=== PATIENT | female | born 1950 | race Caucasian/White ===

== ENCOUNTER 2017-12-12 10:55 | Emergency (ER) | payer BC ==
[~2017-12-12] VITALS: Ht 162.6 cm; Wt 84.8 kg
[~2017-12-12 10:55] MED LIST: AMLODIPINE BES2.5 MG PO; APLISOL5 TUB UNIT ID; C COMPLEX1000 MG PO; CYMBALTA60 MG PO; DESYREL100 MG PO; DULCOLAX10 MG PR; FLEET ENEMA-AD118 ML PR; LEVOTHYROXINE125 MCG PO; LITE COAT ASPI325 M1 PO; LORAZEPAM0.5 MG PO; METOPROLOL SUC100 MG PO; MILK OF MAGN PO; OXYCODONE HCL10 MG PO; OXYCONTIN10 MG PO; PROMETHAZINE HC25 M1 PO; SENNALAX-S TAB1 EACH PO; SINUS CONGESTI PO; SORBUTUSS LIQU474 ML PO; TYLENOL ARTHRI650 MG PO; VITAMIN D32000 UNI1 PO; ZESTRIL30 MG PO
[2017-12-12 12:28] VITALS: BP 193/102
== END 2017-12-12 13:30 | disposition home or self-care (01) ==
LOC: EME 10:55
DX: S43.401A Unspecified sprain of right shoulder joint, initial encounter (principal); W01.190A Fall on same level from slipping, tripping and stumbling with subsequent striking against furniture, initial encounter; Y99.0 Civilian activity done for income or pay; I10 Essential (primary) hypertension; E89.0 Postprocedural hypothyroidism; Z88.2 Allergy status to sulfonamides; Z88.8 Allergy status to other drugs, medicaments and biological substances
CPT/HCPCS: 73030